=== PATIENT | male | born 1965 | race Caucasian/White ===

== ENCOUNTER 2020-05-25 11:46 | Emergency (ER) | payer OTHER | END 2020-05-25 12:28 | disposition home or self-care (01) | LOC: JVIRT 11:46 | DX: U07.1 COVID-19 (principal); R09.81 Nasal congestion; R09.82 Postnasal drip | CPT/HCPCS: C9803; G2251-GT; U0003 ==

== ENCOUNTER 2020-06-16 09:38 | Emergency (ER) | payer OTHER | END 2020-06-16 11:27 | disposition home or self-care (01) | LOC: JVIRT 09:38 | DX: Z20.822 Contact with and (suspected) exposure to COVID-19 (principal) | CPT/HCPCS: 36415; 86769; C9803; G2251-GT; Q3014-GT; U0003 ==